=== PATIENT | female | born 1945 | race Caucasian/White ===

== ENCOUNTER 2017-03-13 09:25 | Outpatient (CLI) | payer MEDICARE, BC ==
[2017-03-13 13:47] LABS: BASOPHILS # (AUTO) 0.1 10^3/uL (0.0-0.1); BASOPHILS % (AUTO) 0.8 %; EOSINOPHILS # (AUTO) 0.1 10^3/uL (0.0-0.7); EOSINOPHILS % (AUTO) 1.2 %; HCT - HEMATOCRIT 36.2 % (37.0-47.0); HGB - HEMOGLOBIN 11.4 g/dL (12.0-16.0); LYMPHOCYTES # (AUTO) 1.2 10^3/uL (1.5-3.5); LYMPHOCYTES % (AUTO) 15.7 %; MEAN CORPUSCULAR HEMOGLOBIN 24.3 pg (27.0-31.0); MEAN CORPUSCULAR HGB CONC 31.5 g/dL (32.0-36.0); MEAN CORPUSCULAR VOLUME 77.4 fL (81.0-99.0); MEAN PLATELET VOLUME 7.6 fL (7.9-10.8); MONOCYTES # (AUTO) 0.5 10^3/uL (0.0-1.0); NEUTROPHILS # (AUTO) 5.9 10^3/uL (1.5-6.6); NEUTROPHILS % (AUTO) 75.3 %; RED BLOOD COUNT 4.68 10^6/uL (4.20-5.40); RED CELL DISTRIBUTION WIDTH 18.8 % (12.0-15.0); UNCORRECTED WHITE BLOOD COUNT 7.8 x10^3/uL; WHITE BLOOD COUNT 7.8 x10^3/uL (4.8-10.8)
[2017-03-13 13:57] LABS: ALBUMIN/GLOBULIN RATIO 1.2 (1.0-2.2); BILIRUBIN,TOTAL 0.3 mg/dL (0.2-1.0); BUN - BLOOD UREA NITROGEN 11 mg/dL (6-20); CARBON DIOXIDE - CO2 27 mmol/L (21-32); CHLORIDE 101 mmol/L (101-111); CHOL/HDL RATIO 2.4 (<4.4); CHOLESTEROL 172 mg/dL; CREATININE 0.6 mg/dL (0.4-1.0); GFR - MDRD 98 (>89); GLUCOSE 98 mg/dL (70-100); HDL CHOLESTEROL 71 mg/dL; LDL/HDL RATIO 1.2 (<4.4); POTASSIUM 3.7 mmol/L (3.5-5.0); SODIUM 135 mmol/L (135-145); TRIGLYCERIDES 72 mg/dL; VLDL CHOLESTEROL 14 mg/dL
[2017-03-13 14:50] LABS: THYROID STIMULATING HORMONE 1.27 uIU/mL (0.34-5.60)
== END 2017-03-13 09:26 | disposition home or self-care (01) ==
LOC: LAB.WCP 09:25
PROVIDERS: ATTEND Family Medicine
DX: Z00.00 Encounter for general adult medical examination without abnormal findings (principal); I10 Essential (primary) hypertension
CPT/HCPCS: 36415; 80053; 80061; 82607; 84443; 85025

== ENCOUNTER 2017-09-12 12:40 | Outpatient (CLI) | payer MEDICARE, BC ==
--- NOTE | 2017-09-12 16:21 | Mammography Report ---
DATE OF SERVICE: 09/12/2017 DIGITAL DIAGNOSTIC BILATERAL MAMMOGRAM: 09/12/2017 CLINICAL INDICATION: Followup right breast calcifications. TECHNIQUE: Bilateral CC and MLO views, right true lateral and spot magnification views. COMPARISON: 08/14/2016, 10/23/2015, 03/22/2015, 02/27/2015, 11/17/2013, 10/16/2012, 07/25/2010. FINDINGS: The breasts demonstrate scattered fibroglandular densities bilaterally. The calcifications in question, in the right lower central breast are stable. No suspicious masses, clustered microcalcifications or regions of architectural distortion are identified. IMPRESSION: BENIGN FINDINGS. RECOMMENDATION: THE PATIENT CAN RETURN TO ROUTINE ANNUAL SCREENING UNLESS OTHERWISE CLINICALLY INDICATED. BIRADS CATEGORY 2-BENIGN FINDINGS. STANDARD QUALIFYING STATEMENTS: 1. This examination was reviewed with the aid of Computer-Aided Detection (CAD). 2. A negative or benign imaging report should not delay biopsy if clinically suspicious findings are present. Consider surgical consultation if warranted. More than 5% of cancers are not identified by imaging. 3. Dense breasts may obscure an underlying neoplasm. TD: 09/12/2017 17:20
== END 2017-09-12 12:41 | disposition home or self-care (01) ==
LOC: DI 12:40
PROVIDERS: ATTEND Family Medicine
DX: R92.8 Other abnormal and inconclusive findings on diagnostic imaging of breast (principal)
CPT/HCPCS: 77066

== ENCOUNTER 2018-03-13 10:45 | Outpatient (CLI) | payer MEDICARE, BC ==
[2018-03-13 19:21] LABS: BASOPHILS % (AUTO) 0.6 %; EOSINOPHILS # (AUTO) 0.1 10^3/uL (0.0-0.7); EOSINOPHILS % (AUTO) 0.9 %; HGB - HEMOGLOBIN 11.6 g/dL (12.0-16.0); LYMPHOCYTES # (AUTO) 0.9 10^3/uL (1.5-3.5); LYMPHOCYTES % (AUTO) 14.8 %; MEAN CORPUSCULAR HEMOGLOBIN 24.8 pg (27.0-31.0); MEAN CORPUSCULAR HGB CONC 32.2 g/dL (32.0-36.0); MEAN CORPUSCULAR VOLUME 77.1 fL (81.0-99.0); MEAN PLATELET VOLUME 7.2 fL (7.9-10.8); MONOCYTES # (AUTO) 0.5 10^3/uL (0.0-1.0); MONOCYTES % (AUTO) 7.6 %; NEUTROPHILS # (AUTO) 4.8 10^3/uL (1.5-6.6); NEUTROPHILS % (AUTO) 76.1 %; PLT - PLATELET COUNT 394 10^3/uL (130-450); RED BLOOD COUNT 4.67 10^6/uL (4.20-5.40); RED CELL DISTRIBUTION WIDTH 19.1 % (12.0-15.0); WHITE BLOOD COUNT 6.3 x10^3/uL (4.8-10.8)
[2018-03-13 19:36] LABS: ALBUMIN 3.5 g/dL (3.2-5.5); ALKALINE PHOSPHATASE 66 IU/L (42-121); ALT ALANINE AMINOTRANSFERASE 12 IU/L (10-60); AST ASPARTATE AMINOTRANSFERASE 18 IU/L (10-42); BILIRUBIN,TOTAL 0.6 mg/dL (0.2-1.0); BUN - BLOOD UREA NITROGEN 8 mg/dL (6-20); CALCIUM 8.8 mg/dL (8.5-10.3); CARBON DIOXIDE - CO2 27 mmol/L (21-32); CHLORIDE 103 mmol/L (101-111); CHOL/HDL RATIO 2.3 (<4.4); CHOLESTEROL 168 mg/dL; CREATININE 0.5 mg/dL (0.4-1.0); GFR - MDRD 121 (>89); GLUCOSE 89 mg/dL (70-100); HDL CHOLESTEROL 74 mg/dL; LDL CHOLESTEROL,CALCULATED 83 mg/dL; LDL/HDL RATIO 1.1 (<4.4); SODIUM 137 mmol/L (135-145); TOTAL PROTEIN 6.9 g/dL (6.7-8.2); VLDL CHOLESTEROL 11 mg/dL
[2018-03-13 19:38] LABS: THYROID STIMULATING HORMONE 1.03 uIU/mL (0.34-5.60)
== END 2018-03-13 10:46 | disposition home or self-care (01) ==
LOC: LAB.WCP 10:45
PROVIDERS: ATTEND Family Medicine
DX: I10 Essential (primary) hypertension (principal); E53.8 Deficiency of other specified B group vitamins
CPT/HCPCS: 36415; 80053; 80061; 82607; 83721; 84443; 85025

== ENCOUNTER 2020-01-13 19:58 | Outpatient (CLI) | payer MEDICARE, BC | END 2020-01-13 23:59 | disposition critical access hospital (66) | LOC: EMS 19:58 | PROVIDERS: ATTEND Surgery | DX: R53.1 Weakness (principal) | CPT/HCPCS: A0425; A0429 ==

== ENCOUNTER 2020-01-13 20:15 | Inpatient (IN) | payer MEDICARE, BC ==
[~2020-01-13 20:15] MED LIST: PIPERACILLIN/TAZOBACTAM 3.375 GM in SODIUM CHLORIDE 0.9% MINIBAG 100 ML IV SCH
--- NOTE | 2020-01-13 20:38 | ED Physician Documentation ---
History of Present Illness - Stated complaint Stated Complaint: GLF, WEAKNESS - Chief complaint Chief Complaint: General - History obtained from History obtained from: Patient, Family (Primarily history is obtained from EMS as well as the patient and the patient's daughter. 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 She does live at home by herselfWas walking with her walker when she slipped and fell down she remained on the floor for approximately 16 hours or so prior to arrival the patient and then called her daughter finally who did call the ambulance eventually brought her here to the emergency department. EMS and the daughter and the patient denies any recent believe that she had any long bone fracture such as a hip or upper extremity fracture. At the daughter reports that she has a chronic decubitus ulcer that is never been addressed medically that usually about the size of a nickel or a quarter and reports it is eccentrically expanded very aggressively and reports low-grade fevers and overall not feeling well recently.The patient denies any chest pain or any shortness of breath.), EMS Review of Systems Constitutional: reports: Chills, Myalgias Eyes: reports: Reviewed and negative Ears: reports: Reviewed and negative Nose: reports: Reviewed and negative Throat: reports: Reviewed and negative Cardiac: reports: Reviewed and negative Respiratory: reports: Reviewed and negative GI: reports: Reviewed and negative : reports: Reviewed and negative Skin: reports: Other (Sacral decubitus ulcer) Musculoskeletal: reports: Other (Sacral decubitus ulcer) Neurologic: reports: Other (Generalized weakness) Psychiatric: reports: Reviewed and negative Endocrine: reports: Reviewed and negative Immunocompromised: reports: Reviewed and negative PD PAST MEDICAL HISTORY - Allergies Allergies/Adverse Reactions: Allergies Allergy/AdvReac Type Severity Reaction Status Date / Time No Known Drug Allergies Allergy Verified 01/13/20 20:32 PD ED PE NORMAL - Vitals Vital signs reviewed: Yes - General General: Alert and oriented X 3, No acute distress - HEENT HEENT: PERRL - Neck Neck: Supple, no meningeal sign - Cardiac Cardiac: RRR, No murmur, Strong equal pulses - Respiratory Respiratory: No respiratory distress, Clear bilaterally - Abdomen Abdomen: Normal bowel sounds, Soft, Non tender, Non distended - Derm Derm: Warm and dry, Other (Large sacral decubitus ulcer Approximately 8 x 8 cm stage II) - Extremities Extremities: No deformity, Other (Chronic right lower extremity dropfoot) - Neuro Neuro: Alert and oriented X 3, camp cook 2-12 intact, No motor deficit, No sensory deficit, Normal speech, Other (Chronic right lower extremity dropfoot) - Psych Psych: Normal mood, Normal affect Results - Vitals Vitals: Vital Signs - 24 hr 01/13/20 01/13/20 01/13/20 20:20 20:32 22:10 Temperature 36.7 C Heart Rate 101 H 95 91 Respiratory 22 30 H 35 H Rate Blood Pressure 61/41 L 77/65 L 67/59 L O2 Saturation 96 93 93 01/13/20 01/13/20 01/13/20 22:25 22:30 23:00 Temperature Heart Rate 88 88 85 Respiratory 16 25 H 25 H Rate Blood Pressure 99/67 123/73 125/83 H O2 Saturation 95 93 95 Oxygen O2 Source Nasal cannula Oxygen Flow Rate 2 - EKG (time done) 00:00 Rate: Other (no stemi) - Labs Labs: Laboratory Tests 01/13/20 01/13/20 01/13/20 20:40 20:40 20:40 WBC 30.6 H RBC 5.24 Hgb 12.7 Hct 38.7 MCV 73.9 L MCH 24.2 L MCHC 32.8 RDW 18.8 H Plt Count 485 H MPV 8.9 Neut # (Auto) 28.5 H Lymph # (Auto) 0.6 L [place] # (Auto) 1.0 Eos # (Auto) 0.1 Baso # (Auto) 0.1 Absolute Nucleated RBC 0.00 Total Counted BURNER TENDER Band Neuts % (Manual) BURNER TENDER Abnorm Lymph % (Manual) BURNER TENDER Nucleated RBC % 0.0 Neutrophils # (Manual) BURNER TENDER Lymphocytes # (Manual) BURNER TENDER Monocytes # (Manual) BURNER TENDER Eosinophils # (Manual) BURNER TENDER Basophils # (Manual) BURNER TENDER Platelet Estimate INCREASED (>450,000) Platelet Morphology NORMAL APPEARANCE RBC Morph Micro Appear NORMAL APPEARANCE PT 17.2 H INR 1.5 H APTT 30.1 Sodium 130 L Potassium 4.2 Chloride 97 L Carbon Dioxide 18 L Anion Gap 15.0 H BUN 31 H Creatinine 1.5 H Estimated GFR (MDRD) 34 L Glucose 122 H Lactic Acid Calcium 8.6 Total Bilirubin 1.4 H AST 458 H ALT 136 H Alkaline Phosphatase 77 Total Creatine Kinase 50179 H* Troponin I High Sens B-Natriuretic Peptide Total Protein 6.5 L Albumin 3.1 L Globulin 3.4 Albumin/Globulin Ratio 0.9 L Lipase 28 Urine Color Urine Clarity Urine pH Ur Specific [place] Urine Protein Urine Glucose (UA) Urine Ketones Urine Occult Blood Urine Nitrite Urine Bilirubin Urine Urobilinogen Ur Leukocyte Esterase Urine RBC Urine WBC Ur Squamous Epith Cells Urine Bacteria Urine Casts Ur Microscopic Review Urine Culture Comments Urine Opiates Screen Ur Oxycodone Screen Urine Methadone Screen Ur Propoxyphene Screen Ur Barbiturates Screen Ur Tricyclics Screen Ur Phencyclidine Scrn Ur Amphetamine Screen U Methamphetamines Scrn U Benzodiazepines Scrn Urine Cocaine Screen U Cannabinoids Screen Ethyl Alcohol < 5.0 01/13/20 01/13/20 01/13/20 20:40 20:40 20:40 WBC RBC Hgb Hct MCV MCH MCHC RDW Plt Count MPV Neut # (Auto) Lymph # (Auto) [place] # (Auto) Eos # (Auto) Baso # (Auto) Absolute Nucleated RBC Total Counted Band Neuts % (Manual) Abnorm Lymph % (Manual) Nucleated RBC % Neutrophils # (Manual) Lymphocytes # (Manual) Monocytes # (Manual) Eosinophils # (Manual) Basophils # (Manual) Platelet Estimate Platelet Morphology RBC Morph Micro Appear PT INR APTT Sodium Potassium Chloride Carbon Dioxide Anion Gap BUN Creatinine Estimated GFR (MDRD) Glucose Lactic Acid 3.2 H* Calcium Total Bilirubin AST ALT Alkaline Phosphatase Total Creatine Kinase Troponin I High Sens 236.3 H* B-Natriuretic Peptide 230 H Total Protein Albumin Globulin Albumin/Globulin Ratio Lipase Urine Color Urine Clarity Urine pH Ur Specific [place] Urine Protein Urine Glucose (UA) Urine Ketones Urine Occult Blood Urine Nitrite Urine Bilirubin Urine Urobilinogen Ur Leukocyte Esterase Urine RBC Urine WBC Ur Squamous Epith Cells Urine Bacteria Urine Casts Ur Microscopic Review Urine Culture Comments Urine Opiates Screen Ur Oxycodone Screen Urine Methadone Screen Ur Propoxyphene Screen Ur Barbiturates Screen Ur Tricyclics Screen Ur Phencyclidine Scrn Ur Amphetamine Screen U Methamphetamines Scrn U Benzodiazepines Scrn Urine Cocaine Screen U Cannabinoids Screen Ethyl Alcohol 01/13/20 21:19 WBC RBC Hgb Hct MCV MCH MCHC RDW Plt Count MPV Neut # (Auto) Lymph # (Auto) [place] # (Auto) Eos # (Auto) Baso # (Auto) Absolute Nucleated RBC Total Counted Band Neuts % (Manual) Abnorm Lymph % (Manual) Nucleated RBC % Neutrophils # (Manual) Lymphocytes # (Manual) Monocytes # (Manual) Eosinophils # (Manual) Basophils # (Manual) Platelet Estimate Platelet Morphology RBC Morph Micro Appear PT INR APTT Sodium Potassium Chloride Carbon Dioxide Anion Gap BUN Creatinine Estimated GFR (MDRD) Glucose Lactic Acid Calcium Total Bilirubin AST ALT Alkaline Phosphatase Total Creatine Kinase Troponin I High Sens B-Natriuretic Peptide Total Protein Albumin Globulin Albumin/Globulin Ratio Lipase Urine Color YELLOW Urine Clarity SL. CLOUDY Urine pH 6.5 Ur Specific [place] 1.015 Urine Protein 100 H Urine Glucose (UA) NEGATIVE Urine Ketones TRACE Urine Occult Blood LARGE H Urine Nitrite NEGATIVE Urine Bilirubin NEGATIVE Urine Urobilinogen 1 (NORMAL) Ur Leukocyte Esterase LARGE H Urine RBC 6-10 H Urine WBC >25 H Ur Squamous Epith Cells RARE Squamous Urine Bacteria Moderate H Urine Casts 3-5 Hyaline Casts Ur Microscopic Review INDICATED Urine Culture Comments INDICATED Urine Opiates Screen NEGATIVE Ur Oxycodone Screen NEGATIVE Urine Methadone Screen NEGATIVE Ur Propoxyphene Screen NEGATIVE Ur Barbiturates Screen NEGATIVE Ur Tricyclics Screen NEGATIVE Ur Phencyclidine Scrn NEGATIVE Ur Amphetamine Screen NEGATIVE U Methamphetamines Scrn NEGATIVE U Benzodiazepines Scrn NEGATIVE Urine Cocaine Screen NEGATIVE U Cannabinoids Screen NEGATIVE Ethyl Alcohol PD MEDICAL DECISION MAKING - ED course Complexity details: reviewed old records, reviewed results, re-evaluated patient, considered differential (Given the patient's large decubitus ulcer and overall weakness an extended period of down time her history and exam are concerning for rhabdomyolysis as well as infectious etiology such as bacteremia her work-up is consistent with an infectious origin she was given empiric IV vancomycin as well as Zosyn as well as multiple fluid boluses her blood pressure did improve significantly the patient will be admitted to the hospitalist.), d/w patient, d/w family - Consults Consults: Discussed case with (dr. gan. will admit.) - Critical Care Time(min): 30 Time Includes: Direct patient care, Review records, Reassess patient, Document care, Coordinate care, Medical consult, Family consult for tx dec Data interpretation: Labs, Pulse ox, CXR Procedures included in critical care time: Peripheral IV Procedures excluded from critical care time: EKG Departure - Departure Disposition: 66 [facility] DC/Xfer Clinical Impression: Weakness, Sacral decubitus ulcer, stage II, Acute kidney injury, Hyponatremia, Elevated troponin Rhabdomyolysis Qualifiers: Rhabdomyolysis type: non-traumatic Qualified Code(s): M62.82 - Rhabdomyolysis Condition: Stable Discharge Date/Time: 01/13/20 23:45
[2020-01-13] MEDS ORDERED: SODIUM CHLORIDE 0.9% 1,000 ML IV STA ×2 (20:51→20:52)
[2020-01-13 20:58] LABS: BASOPHILS # (AUTO) 0.1 10^3/uL (0.0-0.1); BASOPHILS % (AUTO) 0.5 %; EOSINOPHILS # (AUTO) 0.1 10^3/uL (0.0-0.7); EOSINOPHILS % (AUTO) 0.3 %; HGB - HEMOGLOBIN 12.7 g/dL (12.0-16.0); LYMPHOCYTES # (AUTO) 0.6 10^3/uL (1.5-3.5); LYMPHOCYTES % (AUTO) 1.8 %; MEAN CORPUSCULAR HEMOGLOBIN 24.2 pg (27.0-31.0); MEAN CORPUSCULAR HGB CONC 32.8 g/dL (32.0-36.0); MEAN CORPUSCULAR VOLUME 73.9 fL (81.0-99.0); MEAN PLATELET VOLUME 8.9 fL (7.9-10.8); MONOCYTES % (AUTO) 3.4 %; NEUTROPHILS # (AUTO) 28.5 10^3/uL (1.5-6.6); NEUTROPHILS % (AUTO) 93.1 %; PLT - PLATELET COUNT 485 10^3/uL (130-450); RED BLOOD COUNT 5.24 10^6/uL (4.20-5.40); RED CELL DISTRIBUTION WIDTH 18.8 % (12.0-15.0); WHITE BLOOD COUNT 30.6 x10^3/uL (4.8-10.8)
[2020-01-13 21:07] LABS: INR 1.5 (0.8-1.2); PT - PROTHROMBIN TIME 17.2 secs (9.9-12.6)
[2020-01-13 21:14] LABS: PARTIAL THROMBOPLASTIN TIME 30.1 secs (24.9-33.3)
[2020-01-13 21:20] LABS: PLATELET ESTIMATE, MANUAL INCREASED (>450,000) (NORMAL); PLATELET MORPHOLOGY NORMAL APPEARANCE (NORMAL); RBC MORPHOLOGY (MULTIPLE) NORMAL APPEARANCE (NORMAL)
[2020-01-13 21:23] LABS: MUDS CUTOFF CONCENTRATIONS CUTOFF CONC BELOW:
[2020-01-13 21:26] LABS: GLUCOSE, URINE (UA) NEGATIVE (NEGATIVE); KETONES,URINE (UA) TRACE mg/dL (NEGATIVE); LEUKOCYTE ESTERASE, URINE LARGE (NEGATIVE); NITRITE,URINE NEGATIVE (NEGATIVE); OCCULT BLOOD,URINE LARGE (NEGATIVE); PH,URINE 6.5 PH (5.0-7.5); PROTEIN,URINE 100 mg/dL (NEGATIVE); UROBILINOGEN,URINE 1 (NORMAL) E.U./dL (NORMAL)
[2020-01-13] MEDS ORDERED: VANCOMYCIN INJ 1,000 GM in SODIUM CHLORIDE 0.9% 500 ML IV STA (21:27)
[2020-01-13] MEDS ORDERED: PIPERACILLIN/TAZOBACTAM 3.375 GM in SODIUM CHLORIDE 0.9% MINIBAG 100 ML IV STA (21:27)
[2020-01-13 21:28] LABS: CLARITY,URINE SL. CLOUDY (CLEAR)
[2020-01-13 21:29] LABS: BILIRUBIN,URINE NEGATIVE (NEGATIVE); ICTOTEST,URINE NEGATIVE
[2020-01-13 21:34] LABS: BACTERIA,URINE Moderate /HPF (None Seen); CASTS, URINE 3-5 Hyaline Casts /LPF; SQUAMOUS EPITHELIAL CELL,UR RARE Squamous (<= Few)
[2020-01-13 21:37] LABS: AMPHETAMINE SCREEN,URINE NEGATIVE (NEGATIVE); BENZODIAZEPINES SCREEN, URINE NEGATIVE (NEGATIVE); COCAINE SCREEN URINE NEGATIVE (NEGATIVE); METHADONE SCREEN, URINE NEGATIVE (NEGATIVE); METHAMPHETAMINES SCREEN, URINE NEGATIVE (NEGATIVE); OPIATE SCREEN, URINE NEGATIVE (NEGATIVE); OXYCODONE SCREEN, URINE NEGATIVE (NEGATIVE); PROPOXYPHENE SCREEN, URINE NEGATIVE (NEGATIVE); TRICYCLIC ANTIDEPRESSANT,URINE NEGATIVE (NEGATIVE)
[2020-01-13 21:40] LABS: ALBUMIN/GLOBULIN RATIO 0.9 (1.0-2.2)
[2020-01-13 21:41] LABS: ALBUMIN 3.1 g/dL (3.2-5.5); ALKALINE PHOSPHATASE 77 IU/L (42-121); ALT ALANINE AMINOTRANSFERASE 136 IU/L (10-60); AST ASPARTATE AMINOTRANSFERASE 458 IU/L (10-42); BILIRUBIN,TOTAL 1.4 mg/dL (0.2-1.0); BUN - BLOOD UREA NITROGEN 31 mg/dL (6-20); CALCIUM 8.6 mg/dL (8.5-10.3); CARBON DIOXIDE - CO2 18 mmol/L (21-32); CHLORIDE 97 mmol/L (101-111); CREATININE 1.5 mg/dL (0.4-1.0); GLUCOSE 122 mg/dL (70-100); LIPASE 28 U/L (22-51); SODIUM 130 mmol/L (135-145); TOTAL PROTEIN 6.5 g/dL (6.7-8.2)
[2020-01-13 21:42] LABS: CK- CREATINE KINASE 20019 IU/L (22-269)
[2020-01-13] MEDS ORDERED: SODIUM CHLORIDE 0.9% 500 ML ONE (21:50)
[2020-01-13] MEDS ORDERED: VANCOMYCIN INJ 1 GM in SODIUM CHLORIDE 0.9% 250 ML IV ONE (22:00)
[2020-01-13] MEDS ORDERED: VANCOMYCIN 1 GM VIAL ONE (22:05)
--- NOTE | 2020-01-13 22:13 | CT Report ---
Reason: ams Procedure Date: 01/13/2020 Accession Number: [id number] / [id number] Procedure: CT - HEAD WO CPT Code: Final Report FULL RESULT: EXAM: CT HEAD EXAM DATE: 01/13/2020 10:02 PM. CLINICAL HISTORY: Altered mental status. COMPARISON: None. TECHNIQUE: Multiaxial CT images were obtained from the foramen magnum to the vertex. Reformats: Sagittal and coronal. IV contrast: None. In accordance with CT protocol optimization, one or more of the following dose reduction techniques were utilized for this exam: automated exposure control, adjustment of mA and/or KV based on patient size, or use of iterative reconstructive technique. FINDINGS: Parenchyma: No mass-effect or midline shift. No evidence for edema. No evidence for acute intracranial hemorrhage. Diffuse chronic microangiopathic white matter changes are evident. Extraaxial Spaces: Normal for age. No subdural or epidural collections identified. Ventricles: The ventricles and cortical sulci are enlarged, consistent with age-related tissue loss. Sinuses and orbits: Imaged paranasal sinuses, orbits, and mastoids show no significant abnormality. Bones: No evidence of fracture or calvarial defect. IMPRESSION: Generalized age-related cortical atrophic changes without evidence of acute intracranial abnormality. RADIA
--- NOTE | 2020-01-13 22:32 | XRAY Report ---
Reason: cp Procedure Date: 01/13/2020 Accession Number: [id number] / [id number] Procedure: XR - Chest 1 View X-Ray CPT Code: 96675 Final Report FULL RESULT: EXAM: CHEST RADIOGRAPHY EXAM DATE: 01/13/2020 10:25 PM. CLINICAL HISTORY: Cp. COMPARISON: XR CHEST 1 VIEWS 11/13/2008 12:42 PM. TECHNIQUE: 1 view. FINDINGS: Lungs/Pleura: No focal opacities evident. No pleural effusion. No pneumothorax. Mediastinum: Within exam limitations, the cardiomediastinal contour is normal. Other: Degenerative changes at the right humeral joint. IMPRESSION: No acute infiltrates. RADIA
[2020-01-13] MEDS ORDERED: ACETAMINOPHEN 325 MG TABLET PO PRN (23:10)
[2020-01-13] MEDS ORDERED: SODIUM CHLORIDE FLUSH 0.9% 10 ML SYRINGE IVP PRN (23:10)
[2020-01-13] MEDS ORDERED: oxyCODONE 5 MG TABLET PO PRN (23:10)
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
[2020-01-14] MEDS: SODIUM CHLORIDE FLUSH 0.9% 10 ML SYRINGE IVP SCH ×3 (00:30→14:32)
[2020-01-14] MEDS: SODIUM CHLORIDE 0.9% 1,000 ML IV SCH ×2 (00:45→06:47)
[2020-01-14] MEDS: PIPERACILLIN/TAZOBACTAM 3.375 GM in SODIUM CHLORIDE 0.9% MINIBAG 100 ML IV SCH ×2 (01:40→10:00)
[2020-01-14 05:22] LABS: BASOPHILS # (AUTO) 0.1 10^3/uL (0.0-0.1); BASOPHILS % (AUTO) 0.5 %; EOSINOPHILS # (AUTO) 0.1 10^3/uL (0.0-0.7); EOSINOPHILS % (AUTO) 0.5 %; HGB - HEMOGLOBIN 13.7 g/dL (12.0-16.0); LYMPHOCYTES # (AUTO) 0.5 10^3/uL (1.5-3.5); LYMPHOCYTES % (AUTO) 2.2 %; MEAN CORPUSCULAR VOLUME 77.5 fL (81.0-99.0); MEAN PLATELET VOLUME 9.4 fL (7.9-10.8); MONOCYTES # (AUTO) 0.9 10^3/uL (0.0-1.0); MONOCYTES % (AUTO) 3.8 %; NEUTROPHILS # (AUTO) 21.1 10^3/uL (1.5-6.6); NEUTROPHILS % (AUTO) 92.3 %; PLT - PLATELET COUNT 376 10^3/uL (130-450); WHITE BLOOD COUNT 22.8 x10^3/uL (4.8-10.8)
[2020-01-14 05:53] LABS: PLATELET ESTIMATE, MANUAL NORMAL (130-450,000) (NORMAL); PLATELET MORPHOLOGY NORMAL APPEARANCE (NORMAL); RBC MORPHOLOGY (MULTIPLE) NORMAL APPEARANCE (NORMAL)
[2020-01-14 05:54] LABS: MAGNESIUM 2.3 mg/dL (1.7-2.8); PHOSPHORUS 4.9 mg/dL (2.5-4.6)
[2020-01-14 06:02] LABS: CALCIUM 7.9 mg/dL (8.5-10.3); CREATININE 1.2 mg/dL (0.4-1.0)
--- NOTE | 2020-01-14 08:42 | PROVIDER PROGRESS NOTE ---
Assessment/Plan - Problem List (1) Septic shock Assessment/Plan: Blood pressure improved somewhat after the first 3 L of crystalloids given since the ER. Her blood pressure is trending downward with tachycardia. We will recheck lactic acid level, troponin and continue with aggressive volume replace and treat the UTI. A repeat chest x-ray today showed no infiltrates. There was question of free air however. The [facility] radiologist wanted a left lateral decubitus film to rule out intraperitoneal air which was negative but reported a large loop of bowel which is in the thoracic cavity, Consistent with a large diaphragmatic hernia causing a atelectasis on the left side. Her temperature is starting to become febrile. Cancel the bear hugger. Will order blood cultures, if not yet done. Will widen her antibiotics to cover anaerobes, using Flagyl, continue Zosyn and Vanco mycin empirically. Follow WBC daily. (2) Dyspnea Assessment/Plan: At approx 0845 pt became suddenly SOB and diaphoretic, she denied any pain and was too SOB to converse. HR was 120 in sinus tachy, BP 102, O2 sat 82% and improved to 92% on O2 by n.c., she had diminished breath sounds. A STAT CXR was done and showed no pulmionary edema A STAT EKG was done and showed Sinus tach, RBBB. She had already received 3L of fluids in just 10 hours, so fluids were decreased. Morphine iv administered. Troponins and BNP ordered. (3) UTI (urinary tract infection) Assessment/Plan: Urine is growinmg GPC. Continue Zosyn and Vanco. Add Flagyl. She did not have a CT of the abdomen to evaluate for pyelonephritis. (4) Sacral decubitus ulcer, stage II Assessment/Plan: She cannot have an MRI because of rods in her spine. A CT scan of the pelvis was ordered therefore to rule out osteomyelitis. She cannot have the CT scan yet with her current critical condition, hypotensive and unstable. Wound consult from [facility] wound nurse is pending today. (5) Elevated troponin Assessment/Plan: Will recycle troponins, to R/O acute MD. Follow BNP. The CXR did not show pulmonary edema. Echo was done and showed Small chamber sizes, marked LVH, hyperdynamic LVEF. All this is consistent with volume depletion. (6) Rhabdomyolysis Qualifiers: Rhabdomyolysis type: non-traumatic Qualified Code(s): M62.82 - Rhabdomyolysis Assessment/Plan: CK of 20,000 has decreased to 16,000. Linda with IV fluids. Follow her CK daily. (7) Acute kidney injury Assessment/Plan: Continue with hydration and medications to improve perfusion. Avoid nephrotoxins. Watch Vanco levels. Follow BMP daily (8) Fall at home Assessment/Plan: Preceding this was weakness and urinary frequency and enlargement of the sacral decubitus size rapidly and confusion. Very likely hypotension was the cause of her fall. (9) Foot drop, right Assessment/Plan: Chronic, per Hx. (10) Hyponatremia Assessment/Plan: Resolved with saline iv hydration. - Current Meds Current Meds: Current Medications Generic Name Dose Route Start Last Admin Trade Name Freq PRN Reason Stop Dose Admin Acetaminophen 650 mg 01/13/20 23:10 01/14/20 06:38 Tylenol PO 650 mg Q4HR PRN Administration Pain 1 to 4 Sodium Chloride 1,000 mls @ 150 mls/hr 01/13/20 23:45 01/14/20 06:47 Normal Saline 0.9% IV 150 mls/hr .[id number] DALE Administration Piperacillin Sod/Tazobactam 100 mls @ 25 mls/hr 01/14/20 02:00 01/14/20 06:00 Sod 3.375 gm/ Sodium Chloride IV Infused Q8H DALE Infusion Sodium Chloride 10 ml 01/14/20 01:00 01/14/20 00:30 Normal Saline Flush 0.9% IVP 10 ml 0100,0900,1700 DALE Administration - Lab Result Fish Bone Diagrams: 01/14/20 05:00 01/14/20 05:00 - Additional Planning My Orders: My Active Orders 01/14/20 11:30 LACTIC ACID, VENOUS [CHEM] Timed Subjective - Subjective Patient Reports: Shortness of Breath, Other (Diaphoretic.) Nursing Reports: Confused, Other (She had abdominal pain 1 hour ago which was treated with Tylenol and resolved. Patient is hungry but cannot figure out how to feed herself.) Objective Vital Signs: Vital Signs - 24 hr 01/13/20 01/13/20 01/13/20 20:20 20:32 22:10 Temperature 36.7 C Heart Rate 101 H 95 91 Heart Rate [ Monitoring electrodes] Respiratory 22 30 H 35 H Rate Blood Pressure 61/41 L 77/65 L 67/59 L Blood Pressure [Left Brachial artery] Blood Pressure [Right Brachial artery] Blood Pressure [Right Radial artery] O2 Saturation 96 93 93 01/13/20 01/13/20 01/13/20 22:25 22:30 23:00 Temperature Heart Rate 88 88 85 Heart Rate [ Monitoring electrodes] Respiratory 16 25 H 25 H Rate Blood Pressure 99/67 123/73 125/83 H Blood Pressure [Left Brachial artery] Blood Pressure [Right Brachial artery] Blood Pressure [Right Radial artery] O2 Saturation 95 93 95 01/13/20 01/14/20 01/14/20 23:30 00:00 00:30 Temperature 36.8 C Heart Rate 82 Heart Rate [ 84 84 Monitoring electrodes] Respiratory 27 H 24 25 H Rate Blood Pressure 116/79 Blood Pressure 107/90 H [Left Brachial artery] Blood Pressure [Right Brachial artery] Blood Pressure 102/64 [Right Radial artery] O2 Saturation 94 97 100 01/14/20 01/14/20 01/14/20 02:00 03:00 04:00 Temperature 36.3 C L Heart Rate Heart Rate [ 91 95 103 H Monitoring electrodes] Respiratory 26 H 21 24 Rate Blood Pressure Blood Pressure [Left Brachial artery] Blood Pressure 96/48 L 85/53 L [Right Brachial artery] Blood Pressure 106/63 [Right Radial artery] O2 Saturation 97 100 95 01/14/20 01/14/20 01/14/20 04:30 06:00 06:56 Temperature 37.2 C Heart Rate Heart Rate [ 93 106 H Monitoring electrodes] Respiratory 28 H 26 H Rate Blood Pressure Blood Pressure [Left Brachial artery] Blood Pressure 107/73 92/76 [Right Brachial artery] Blood Pressure [Right Radial artery] O2 Saturation 100 97 01/14/20 07:00 Temperature Heart Rate Heart Rate [ 110 H Monitoring electrodes] Respiratory 36 H Rate Blood Pressure Blood Pressure [Left Brachial artery] Blood Pressure 121/109 H [Right Brachial artery] Blood Pressure [Right Radial artery] O2 Saturation 100 Oxygen O2 Source Room air Oxygen Flow Rate 2 I&O (Last 24 Hrs): Intake and Output Totals x24h 01/12/20 01/13/20 01/14/20 23:59 23:59 23:59 Intake Total 2600 1405.000 Output Total 1075 Balance 2600 330.000 General: Moderate distress HEENT: Other (Edentulous, dry mucosa, sunken eyes, cachectic with temporal wating, anicteric.) Neck: Supple, No JVD Neuro: Disoriented, Other (Moving all extremities. He is able to nod yes and no when I ask her questions.) Cardiovascular: No murmurs, Other (Tachycardic) Respiratory: Breath sounds nml, Other (No wheezes or rales but shallow breaths with very poor air movement diffusely.) Abdomen: Soft Rectal: Other (From admission images done by the RN: She has a grade 2 large decubitus ulcer.) Extremities: No edema - Results Results: Laboratory Results WBC 22.8 x10^3/uL (4.8-10.8) H 01/14/20 05:00 RBC 5.70 10^6/uL (4.20-5.40) H 01/14/20 05:00 Hgb 13.7 g/dL (12.0-16.0) 01/14/20 05:00 Hct 44.2 % (37.0-47.0) 01/14/20 05:00 MCV 77.5 fL (81.0-99.0) L 01/14/20 05:00 MCH 24.0 pg (27.0-31.0) L 01/14/20 05:00 MCHC 31.0 g/dL (32.0-36.0) L 01/14/20 05:00 RDW 20.0 % (12.0-15.0) H 01/14/20 05:00 Plt Count 376 10^3/uL (130-450) 01/14/20 05:00 MPV 9.4 fL (7.9-10.8) 01/14/20 05:00 Neut # (Auto) 21.1 10^3/uL (1.5-6.6) H 01/14/20 05:00 Lymph # (Auto) 0.5 10^3/uL (1.5-3.5) L 01/14/20 05:00 Travis # (Auto) 0.9 10^3/uL (0.0-1.0) 01/14/20 05:00 Eos # (Auto) 0.1 10^3/uL (0.0-0.7) 01/14/20 05:00 Baso # (Auto) 0.1 10^3/uL (0.0-0.1) 01/14/20 05:00 Absolute Nucleated RBC 0.00 x10^3/uL 01/14/20 05:00 Total Counted [employer]GRAM COORDINATOR 01/14/20 05:00 Band Neuts % (Manual) [employer] PROGRAM COORDINATOR 01/14/20 05:00 Abnorm Lymph % (Manual) [employer] PROGRAM COORDINATOR 01/14/20 05:00 Nucleated RBC % 0.0 /100WBC 01/14/20 05:00 Neutrophils # (Manual) [employer] PROGRAM COORDINATOR 01/14/20 05:00 Lymphocytes # (Manual) [employer] PROGRAM COORDINATOR 01/14/20 05:00 Monocytes # (Manual) [employer] PROGRAM COORDINATOR 01/14/20 05:00 Eosinophils # (Manual) [employer] PROGRAM COORDINATOR 01/14/20 05:00 Basophils # (Manual) [employer] PROGRAM COORDINATOR 01/14/20 05:00 Platelet Estimate NORMAL (130-450,000) (NORMAL) 01/14/20 05:00 Platelet Morphology NORMAL APPEARANCE (NORMAL) 01/14/20 05:00 RBC Morph Micro Appear NORMAL APPEARANCE (NORMAL) 01/14/20 05:00 PT 17.2 secs (9.9-12.6) H 01/13/20 20:40 INR 1.5 (0.8-1.2) H 01/13/20 20:40 APTT 30.1 secs (24.9-33.3) 01/13/20 20:40 Sodium 135 mmol/L (135-145) 01/14/20 05:00 Potassium 4.3 mmol/L (3.5-5.0) 01/14/20 05:00 Chloride 106 mmol/L (101-111) 01/14/20 05:00 Carbon Dioxide 15 mmol/L (21-32) L 01/14/20 05:00 Anion Gap 14.0 (6-13) H 01/14/20 05:00 BUN 37 mg/dL (6-20) H 01/14/20 05:00 Creatinine 1.2 mg/dL (0.4-1.0) H 01/14/20 05:00 Estimated GFR (MDRD) 44 (>89) L 01/14/20 05:00 Glucose 91 mg/dL (70-100) 01/14/20 05:00 Lactic Acid 3.4 mmol/L (0.5-2.2) H* 01/14/20 07:35 Calcium 7.9 mg/dL (8.5-10.3) L 01/14/20 05:00 Phosphorus 4.9 mg/dL (2.5-4.6) H 01/14/20 05:00 Magnesium 2.3 mg/dL (1.7-2.8) 01/14/20 05:00 Total Bilirubin 1.4 mg/dL (0.2-1.0) H 01/13/20 20:40 AST 458 IU/L (10-42) H 01/13/20 20:40 ALT 136 IU/L (10-60) H 01/13/20 20:40 Alkaline Phosphatase 77 IU/L (42-121) 01/13/20 20:40 Total Creatine Kinase 78356 IU/L (22-269) H* 01/14/20 05:00 Troponin I High Sens 84.5 ng/L (2.3-14.8) H* 01/14/20 07:35 B-Natriuretic Peptide 230 pg/mL (5-100) H 01/13/20 20:40 Total Protein 6.5 g/dL (6.7-8.2) L 01/13/20 20:40 Albumin 3.1 g/dL (3.2-5.5) L 01/13/20 20:40 Globulin 3.4 g/dL (2.1-4.2) 01/13/20 20:40 Albumin/Globulin Ratio 0.9 (1.0-2.2) L 01/13/20 20:40 Lipase 28 U/L (22-51) 01/13/20 20:40 Urine Color YELLOW 01/13/20 21:19 Urine Clarity SL. CLOUDY (CLEAR) 01/13/20 21: Urine pH 6.5 PH (5.0-7.5) 01/13/20: Ur Specific [place] 1.015 (1.002-1.030) 01/13/20 21: Urine Protein 100 mg/dL (NEGATIVE) H 01/13/20 21:19 Urine Glucose (UA) NEGATIVE mg/dL (NEGATIVE) 01/13/20 21: Urine Ketones TRACE mg/dL (NEGATIVE) 01/13/20 21:19 Urine Occult Blood LARGE (NEGATIVE) H 01/13/20 21:19 Urine Nitrite NEGATIVE (NEGATIVE) 01/13/20 21:19 Urine Bilirubin NEGATIVE (NEGATIVE) 01/13/20 21:19 Urine Urobilinogen 1 (NORMAL) E.U./dL (NORMAL) 01/13/20 21:19 Ur Leukocyte Esterase LARGE (NEGATIVE) H 01/13/20 21:19 Urine RBC 6-10 /HPF (0-5) H 01/13/20 21:19 Urine WBC >25 /HPF (0-5) H 01/13/20 21:19 Ur Squamous Epith Cells RARE Squamous (<= Few) 01/13/20 21:19 Urine Bacteria Moderate /HPF (None Seen) H 01/13/20 21:19 Urine Casts 3-5 Hyaline Casts /LPF 01/13/20 21:19 Ur Microscopic Review INDICATED 01/13/20 21:19 Urine Culture Comments INDICATED 01/13/20 21:19 Nasal Screen MRSA (PCR) NEGATIVE (NEGATIVE) 01/14/20 00:01 Urine Opiates Screen NEGATIVE (NEGATIVE) 01/13/20 21:19 Ur Oxycodone Screen NEGATIVE (NEGATIVE) 01/13/20 21:19 Urine Methadone Screen NEGATIVE (NEGATIVE) 01/13/20 21:19 Ur Propoxyphene Screen NEGATIVE (NEGATIVE) 01/13/20 21:19 Ur Barbiturates Screen NEGATIVE (NEGATIVE) 01/13/20 21:19 Ur Tricyclics Screen NEGATIVE (NEGATIVE) 01/13/20 21:19 Ur Phencyclidine Scrn NEGATIVE (NEGATIVE) 01/13/20 21:19 Ur Amphetamine Screen NEGATIVE (NEGATIVE) 01/13/20 21:19 U Methamphetamines Scrn NEGATIVE (NEGATIVE) 01/13/20 21:19 U Benzodiazepines Scrn NEGATIVE (NEGATIVE) 01/13/20 21:19 Urine Cocaine Screen NEGATIVE (NEGATIVE) 01/13/20 21:19 U Cannabinoids Screen NEGATIVE (NEGATIVE) 01/13/20 21:19 Ethyl Alcohol < 5.0 mg/dL 01/13/20 20:40 Sepsis Event Note (H) - Evaluation Current Stage of Sepsis: Sepsis Possible source of Sepsis: positive: Genitourinary, Skin/soft tissue - Sepsis Criteria Sepsis Criteria: Recorded Respiratory Rate greater than 20, WBC count greater than 10% bands, SBP less than 90 mmHg, Metabolic: lactate > 2 mmol/L
[2020-01-14] MEDS ORDERED: MORPHINE 2 MG/ML CARPUJECT IVP SCH (08:57)
[2020-01-14] MEDS ORDERED: SODIUM CHLORIDE 0.9% 1,000 ML IV SCH ×2 (08:59→12:00)
[2020-01-14] MEDS ORDERED: HEPARIN 5,000 UNIT/ML VIAL SUBQ SCH (09:00)
--- NOTE | 2020-01-14 09:30 | XRAY Report ---
Reason: Sudden SOB Procedure Date: 01/14/2020 Accession Number: [id number] / [id number] Procedure: XR - Chest 1 View X-Ray CPT Code: 69875 Final Report FULL RESULT: EXAM: CHEST RADIOGRAPHY EXAM DATE: 01/14/2020 09:09 AM. CLINICAL HISTORY: Sudden SOB. COMPARISON: CHEST 1 VIEW 01/13/2020 9:48 PM. TECHNIQUE: 1 view. FINDINGS: Lungs/Pleura: Crescentic lucency projecting over the left heart shadow is incompletely assessed on this examination. Mediastinum: Within exam limitations, the cardiomediastinal contour is normal. Other: None. IMPRESSION: Consider a PA and lateral chest radiograph to further evaluate the crescentic lucency projecting through the left lower hemithorax. Alternatively, a chest CT with contrast may help to further evaluate this finding. This is new from the prior examination. If there is concern for free air in the abdomen, a left lateral decubitus view may also be of benefit. JOIA The critical result notification system was initiated by Dr. Maine Weinstein at 09:22 AM on 01/14/2020. The above critical result findings were discussed with Sabrina Sanders by Dr. Maine Weinstein at 09:27 AM on 01/14/2020.
[2020-01-14] MEDS ORDERED: ATROPINE ABBOJECT 0.5 MG/5 ML SYRINGE IVP ONE ×2 (10:18→10:34)
--- NOTE | 2020-01-14 10:47 | ANESTHESIA PROCEDURE NOTE ---
Anesth Central Line Template - Central Line Central Line Preparation: Consent Obtained (via daughter via telephone) Central line location: Right IJ Central line type: Triple lumen Central line catheter tip site resides: Superior vena cava (SVC) Central line aftercare: Chlorhexidine disc placed (Call to [phone] for CVL. Indications include bacteremia, sepsis, and hypotension. Consent completed via telephone by RN prior to my arrival on unit. Pt unresponsive to verbal commands, questions. Pt placed flat and tilted Tberg for venous identification. Sterile prep and drape after gown, gloves, mask, hat. Sats and HR low upon arrival but droppped further after draping. NC swithched to NRB mask after Sats >80%. Sats stable at 85. Continued with procedure. R IJ identified w US. Local wheal to site with 1% Lido. Needle to blood return, wire threaded without ectopy. Dilator over wire, cath over wire, wire out. Capsx3 placed, all aspirate and flush blood easily. Suture x1 instead of 3 @15cm due to drop in HR and Sats and urgency of situation. Drapes removed, tegaderm placed, call for PCXR. HOB returned to flat. Ok to use CVL following PCXR.), Secured, Placement confirmed, No pneumothorax, No complications, Bundle checklist complete, Pt tolerated well, Other
[2020-01-14] MEDS ORDERED: SODIUM CHLORIDE 0.9% 500 ML IV ONE (10:50)
[2020-01-14] MEDS ORDERED: metroNIDAZOLE 500 MG/100 ML 500 MG/100 ML BAG IV SCH (11:00)
--- NOTE | 2020-01-14 11:06 | XRAY Report ---
Reason: Lateral decub abd, eval for free air Procedure Date: 01/14/2020 Accession Number: [id number] / [id number] Procedure: XR - Abdomen 1 View X-Ray CPT Code: 04648 Final Report FULL RESULT: EXAM: ABDOMEN RADIOGRAPHY EXAM DATE: 01/14/2020 10:48 AM. CLINICAL HISTORY: Lateral decub abd, eval for free air. COMPARISON: CHEST 1 VIEW 01/14/2020 10:19 AM CHEST 1 VIEW 01/14/2020 8:50 AM XR CHEST 1 VIEWS 11/13/2008 12:42 PM CHEST 1 VIEW 01/13/2020 9:48 PM. TECHNIQUE: 1 view. FINDINGS: Bowel Gas Pattern: Within normal limits. No dilated loops. Other: No free air. IMPRESSION: No free intraperitoneal air identified. RADIA The critical test notification system was initiated by Dr. Maine Weinstein at 10:56 AM on 01/14/2020. The above critical test findings were discussed with Sabrina Sanders by Dr. Maine Weinstein at 11:05 AM on 01/14/2020.
--- NOTE | 2020-01-14 11:09 | XRAY Report ---
Reason: new AARON @[facility] Procedure Date: 01/14/2020 Accession Number: [id number] / [id number] Procedure: XR - Chest for Line Placement CPT Code: Final Report FULL RESULT: EXAM: CHEST RADIOGRAPHY EXAM DATE: 01/14/2020 10:48 AM. CLINICAL HISTORY: New ARAON @[facility]. COMPARISON: CHEST 1 VIEW 01/14/2020 8:50 AM. TECHNIQUE: 1 view. FINDINGS: Lungs/Pleura: Large diaphragmatic hernia containing a loop of colon. The right costophrenic angle is excluded from the [id number]. Mediastinum: Within exam limitations, the cardiomediastinal contour is normal. Other: There is a new right IJ approach intravenous catheter position with its tip in the lower SVC near the upper cavoatrial junction. The right costophrenic angle is excluded from the [id number] and a pneumothorax cannot be excluded on this film. IMPRESSION: 1. There is a new right IJ approach intravenous catheter position with its tip in the lower SVC near the upper cavoatrial junction. 2. The right costophrenic angle is excluded from the [id number] and a pneumothorax cannot be excluded on this film. 3. Large diaphragmatic hernia containing a loop of colon. RADIA
--- NOTE | 2020-01-14 11:16 | ANESTHESIA PROCEDURE NOTE ---
Anesthesia Intubation Template - Intubation Blade: positive: Glidescope Tube: Size-enter number (7.5), Cuffed, Marked at teeth-enter cm (21) Route: Oral Placement Confirmation: End tidal CO2, Direct visualization (via glide), Bilateral breath sounds Complications: No complications (Rocuronium 30mg, Propofol 50mg prior to intubation.)
--- NOTE | 2020-01-14 11:45 | PHARMACY PROGRESS NOTE ---
- Best Possible Medication History Admit Date and Time: 01/13/20 3198 Processed by: Pharmacy Medication History completed: Yes Patient Interview: Pt unable to participate Secondary Source(s): Physician records, Pharmacy records, Insurance records As the person ultimately responsible for medication therapy, providers are able to order a medication from an existing home medication list in [facility] via the "Reconcile Routine" prior to Confirmation of that medication by learning support specialist. Such practice is discouraged except when the physician, in their clinical judgment, deems that a medical need exists for a medication without regard to previous use.
[2020-01-14] MEDS ORDERED: SODIUM CHLORIDE 0.9% 1,000 ML IV ONE ×2 (11:59→12:02)
[2020-01-14] MEDS ORDERED: MIDAZOLAM DRIP 50 MG/100 ML BAG IV SCH (12:00)
--- NOTE | 2020-01-14 13:56 | CONSULTATION NOTE ---
Consultation Report: Called to place Vannessa after repeated low BP despite fluid, central line, head down, and max dose pressor (norepi). Unable to identify R radial artery with ultrasound. A scar runs parallel to the location of the R RAdial artery from the wrist and moves proximally about 5 inches. (previous surgery?) Sterile gloves, chlorhexadine prior to each attempt. Attempt x2 at L radial artery with ultrasound, unable to thread catheter. Attempt x1 at L brachial artery, also unsuccessful. Attempt x1 @R brachial artery, cath threaded, corresponding waveform present. Secured with tegaderm and tape. Zero'd. 100/60.
--- NOTE | 2020-01-14 14:05 | XRAY Report ---
Reason: NGT and ETT Procedure Date: 01/14/2020 Accession Number: [id number] / [id number] Procedure: XR - Chest for Line Placement CPT Code: Final Report FULL RESULT: EXAM: CHEST RADIOGRAPHY EXAM DATE: 01/14/2020 12:03 PM. CLINICAL HISTORY: NGT and ETT. COMPARISON: CHEST 1 VIEW 01/14/2020 10:19 AM. TECHNIQUE: 1 view. FINDINGS: Lungs/Pleura: Groundglass opacities in the left perihilar station redemonstrated. Mediastinum: Within exam limitations, the cardiomediastinal contour is normal. Other: Large hiatal hernia containing a large portion of the stomach. The NG tube appears to be coiled within this portion of stomach in the chest. Severe atherosclerotic disease of the right and left shoulders. IMPRESSION: 1. Large hiatal hernia containing a large portion of the stomach. 2. The NG tube appears to be coiled within the herniated portion of stomach in the chest. 3. The ET tube is positioned 5.5 cm above the randall. RADIA
[2020-01-14 14:07] LABS: ABG PCO2 39 mmHg (34-45)
[2020-01-14 14:08] LABS: ABG BASE EXCESS -23.2 mmol/L (-2.0-3.0); ABG HCO3 8.2 mmol/L (22.0-26.0); ABG OXYGEN SATURATION 99 % (94-98)
[2020-01-14 14:13] LABS: ABG PH 6.94 (7.35-7.45); ABG PO2 238 mmHg (80-100); ABG TCO2 9.4 MMOL/L (21.0-29.0)
[2020-01-14] MEDS ORDERED: SODIUM BICARBONATE ABBOJECT 50 MEQ/50 ML SYRINGE IVP ONE ×3 (14:19→15:57)
[2020-01-14] MEDS ORDERED: SODIUM BICARBONATE ABBOJECT 50 MEQ/50 ML SYRINGE ONE (14:31)
--- NOTE | 2020-01-14 14:33 | PROVIDER PROGRESS NOTE ---
Hospitalist Cross-cover Note - Cross-Cover Note Cross-Cover Note: At approx 1015, her RN called me that she was in cardiopulmonary distress. I arrived at bedside. The Motor Equipment Lieutenant Tom was putting in a right sided IJ CVP line and the patient was in Trendelenburg. Heart rate was sinus bradycardia at 50 and blood pressure was not palpable. Her skin was ashen-jesus. I called a CODE Blue/Rapid response. Heart rate dropped into the 40s and 30s then 20s, still in sinus rhythm. I ordered ambu bagging of the patient and ordered atropine 0.5 mg IV x1. Tom of Anesthesia was able to finish the procedure and suture in and secure the right sided CVP line. Blood pressure was cycled and was approximately 100 systolic. Heart rate emely to 128 in sinus tachycardia, after the atropine was given by iv push. Patient was continued to be bagged, she had minimal spontaneous respirations. IV fluid bolus was ordered and discontinuation of the bear hugger. An axillary temp was measured and it was 37.5 degrees C. Her heart rate started to drop into the 80s and then again 50s and 40s over the next 20 minutes, blood pressure again dropped and heart rate became 40s in sinus rhythm. Another half amp of iv atropine was ordered and given. Heart rate emely to the 120s, blood pressure was about 100 systolic. An arterial blood gas was ordered and after 3 attempts could not be obtained by RT. Elective intubation was ordered which was performed by Tom of the Anesthesia department successfully. I reviewed the separate bedside x-rays that confirmed good CVP line placement, proper ET tube placement, good NG tube placement. Blood pressure dropped into the 60s systolic and a Levophed drip was ordered, another saline bolus of 1000 cc was ordered. An arterial line was ordered which was inserted by Tom of Anesthesia. Her arterial blood gas returned showing pH of 6.9, PCO2 of 33, PO2 of 237 on FiO2 of 100%. Her lactic acid level returned elevated at 7.4 and troponin rising at 245. I ordered 1 amp of Bicarb 50 mEq and decrease FIO2 to 60% and another ABG. I called the daughter Vonnie and updated her on the above. We will allow the for children to visit since she is in critical condition. CRITICAL CARE TIME SPENT: 100 min (between 1015 and 1400)
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
[2020-01-14 15:25] LABS: ABG PCO2 39 mmHg (34-45); ABG PO2 120 mmHg (80-100)
[2020-01-14 15:26] LABS: ABG BASE EXCESS -22.1 mmol/L (-2.0-3.0); ABG HCO3 8.7 mmol/L (22.0-26.0); ABG OXYGEN SATURATION 96 % (94-98)
[2020-01-14 15:30] LABS: ABG PH 6.97 (7.35-7.45); ABG TCO2 9.9 MMOL/L (21.0-29.0)
[2020-01-14] MEDS ORDERED: VANCOMYCIN INJ 1 GM in SODIUM CHLORIDE 0.9% 250 ML IV SCH (16:00)
[2020-01-14] MEDS ORDERED: LACTATED RINGERS 1,000 ML IV SCH (16:00)
[2020-01-14 17:02] VITALS: BP 74/52
[2020-01-14 17:11] LABS: ABG HCO3 9.3 mmol/L (22.0-26.0); ABG PCO2 34 mmHg (34-45); ABG PO2 94 mmHg (80-100)
[2020-01-14 17:12] LABS: ABG OXYGEN SATURATION 93 % (94-98)
[2020-01-14 17:15] LABS: ABG PH 7.05 (7.35-7.45); ABG TCO2 10.3 MMOL/L (21.0-29.0)
[2020-01-14] MEDS ORDERED: ADENOSINE 6 MG/2 ML VIAL IVP ONE (17:26)
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
== END 2020-01-14 17:55 | disposition expired | DRG 871 ==
LOC: EDUNIT# → ED 20:15 → ICU 23:10
PROVIDERS: ADMIT Internal Medicine; ATTEND Internal Medicine
PROC: 5A1935Z Respiratory Ventilation, Less than 24 Consecutive Hours (ICD-10-PCS; principal; 2020-01-14)
PROC: 0BH17EZ Insertion of Endotracheal Airway into Trachea, Via Natural or Artificial Opening (ICD-10-PCS; 2020-01-14)
PROC: 03HY32Z Insertion of Monitoring Device into Upper Artery, Percutaneous Approach (ICD-10-PCS; 2020-01-14)
PROC: 02HV33Z Insertion of Infusion Device into Superior Vena Cava, Percutaneous Approach (ICD-10-PCS; 2020-01-14)
DX: A40.8 Other streptococcal sepsis (principal); L89.153 Pressure ulcer of sacral region, stage 3; R65.21 Severe sepsis with septic shock; N17.9 Acute kidney failure, unspecified; L89.159 Pressure ulcer of sacral region, unspecified stage; E87.1 Hypo-osmolality and hyponatremia; M62.82 Rhabdomyolysis; N39.0 Urinary tract infection, site not specified; E87.2 Acidosis; J98.11 Atelectasis; R57.1 Hypovolemic shock; A40.0 Sepsis due to streptococcus, group A; L89.152 Pressure ulcer of sacral region, stage 2; Z74.09 Other reduced mobility; M21.371 Foot drop, right foot; R79.89 Other specified abnormal findings of blood chemistry; I45.10 Unspecified right bundle-branch block; R00.1 Bradycardia, unspecified; I10 Essential (primary) hypertension; K44.9 Diaphragmatic hernia without obstruction or gangrene; R06.00 Dyspnea, unspecified; Z66 Do not resuscitate; Z87.891 Personal history of nicotine dependence; Z91.81 History of falling
CPT/HCPCS: 36415; 70450; 71045; 74018; 80048; 80053; 81001; 82550; 82803; 83605; 83690; 83735; 83880; 84100; 84484; 85025; 85610; 85730; 87040; 87077; 87086; 87150; 87181; 93005; 93306; 94002; 96365; 96368; 99285; 99291; A9270; J0153; J3370; J7120; 80306; 80320; 81003; 94770